=== PATIENT | female | born 1975 | race Caucasian/White ===

== ENCOUNTER 2017-02-14 07:47 | Emergency (ER) | payer OTHER | END 2017-02-14 11:40 | disposition home or self-care (01) | LOC: ER 07:47 | DX: N83.201 Unspecified ovarian cyst, right side (principal); I10 Essential (primary) hypertension; G43.909 Migraine, unspecified, not intractable, without status migrainosus; F41.9 Anxiety disorder, unspecified; Z90.710 Acquired absence of both cervix and uterus; Z98.51 Tubal ligation status; Z88.1 Allergy status to other antibiotic agents | CPT/HCPCS: 36415; 96374; 96375; J1885; Q9967 ==

== ENCOUNTER 2017-03-27 18:48 | Emergency (ER) | payer OTHER | END 2017-03-27 19:24 | disposition home or self-care (01) | LOC: ER 18:48 | DX: D17.23 Benign lipomatous neoplasm of skin and subcutaneous tissue of right leg (principal); G62.89 Other specified polyneuropathies; I10 Essential (primary) hypertension; Z90.710 Acquired absence of both cervix and uterus; Z98.51 Tubal ligation status; Z79.899 Other long term (current) drug therapy; Z88.1 Allergy status to other antibiotic agents ==